=== PATIENT | female | born 1980 | race Caucasian/White ===

== ENCOUNTER 2018-07-29 18:48 | Emergency (ER) | payer SELFPAY ==
[~2018-07-29] VITALS: Ht 175.3 cm; Wt 52.2 kg
== END 2018-07-29 22:03 | disposition home or self-care (01) ==
LOC: ER 18:55
DX: M25.531 Pain in right wrist (principal); Y04.0XXA Assault by unarmed brawl or fight, initial encounter; Y93.89 Activity, other specified; Y92.89 Other specified places as the place of occurrence of the external cause; Y99.8 Other external cause status
CPT/HCPCS: 73110

== ENCOUNTER 2019-06-20 00:19 | Emergency (ER) | payer SELFPAY ==
[~2019-06-20] VITALS: Ht 175.3 cm; Wt 52.2 kg
[2019-06-20 00:48] VITALS: BP 118/18
== END 2019-06-20 01:22 | disposition home or self-care (01) ==
LOC: ER 00:26
DX: M25.531 Pain in right wrist (principal); F43.10 Post-traumatic stress disorder, unspecified; F41.9 Anxiety disorder, unspecified; F32.9 Major depressive disorder, single episode, unspecified; Z60.2 Problems related to living alone; Y08.89XA Assault by other specified means, initial encounter; Y93.89 Activity, other specified; Y92.89 Other specified places as the place of occurrence of the external cause; Y99.8 Other external cause status

== ENCOUNTER 2020-02-17 18:16 | Emergency (ER) | payer MEDICAID ==
[~2020-02-17] VITALS: Ht 175.3 cm; Wt 52.2 kg
--- NOTE | 2020-02-17 18:16 | NUR ---
PT BIB SELF C/O LEFT UE PAIN/BRUISE,S/P SLIP/FALL AT HOME,NO LOC. PT IS AAOX4, NOT IN RESPIRATORY DISTRESS, V/S STABLE, KEPT RESTED AND COMFORTABLE. WILL CONTINUE TO MONITOR.
--- NOTE | 2020-02-17 18:40 | NUR ---
SEEN AND EXAMINED BY MACIEL LO
[2020-02-17] MEDS ORDERED: HYDROCODONE/APAP 5/325MG TABLET ONE (18:45)
--- NOTE | 2020-02-17 18:48 | NUR ---
PT SIGNED WAIVER.
[2020-02-17] MEDS ORDERED: HYDROCODONE/APAP 5/325MG TABLET PO ONE (19:00)
[2020-02-17] MEDS ORDERED: IV NS 0.9% 500 ML BAG IV ONE (20:00)
[2020-02-17] MEDS ORDERED: PROPOFOL 200 MG/20 ML VIAL IV ONE (20:00)
[2020-02-17] MEDS ORDERED: KETAMINE HCL (500MG/10ML) 50 MG/ML VIAL IV ONE (20:00)
[2020-02-17] MEDS ORDERED: PROPOFOL 20 ML IV ONE (20:15)
[2020-02-17] MEDS ORDERED: KETAMINE HCL (500MG/10ML) 50 MG/ML VIAL ONE (20:15)
[2020-02-17] MEDS ORDERED: diphenhydrAMINE HCL 50 MG/ML VIAL ONE (20:40)
[2020-02-17] MEDS ORDERED: LORAZEPAM INJ 2 MG/ML VIAL ONE (20:44)
--- NOTE | 2020-02-17 20:45 | NUR ---
2019 lt wrist reduction with mod sedation done by dr. linda with tessie grant, consents signed in chart. see: intervention notes
--- NOTE | 2020-02-17 22:55 | NUR ---
Patient discharged to home in stable condition. Written and verbal after care instructions given. Patient verbalizes understanding of instruction.IV removed. Catheter intact and site benign. Pressure and 4x4 applied to site. No bleeding noted.
[2020-02-17 23:00] VITALS: BP 130/75
[2020-02-17] MEDS ORDERED: diphenhydrAMINE HCL 50 MG/ML VIAL IV ONE (23:30)
[2020-02-17] MEDS ORDERED: LORAZEPAM INJ 2 MG/ML VIAL IV ONE (23:30)
== END 2020-02-17 23:01 | disposition home or self-care (01) ==
LOC: ER 18:20
DX: S52.592A Other fractures of lower end of left radius, initial encounter for closed fracture (principal); S52.615A Nondisplaced fracture of left ulna styloid process, initial encounter for closed fracture; S40.012A Contusion of left shoulder, initial encounter; S09.8XXA Other specified injuries of head, initial encounter; F43.10 Post-traumatic stress disorder, unspecified; F41.9 Anxiety disorder, unspecified; F32.9 Major depressive disorder, single episode, unspecified; Z60.2 Problems related to living alone; W01.0XXA Fall on same level from slipping, tripping and stumbling without subsequent striking against object, initial encounter; Y93.89 Activity, other specified; Y92.098 Other place in other non-institutional residence as the place of occurrence of the external cause; Y99.8 Other external cause status
CPT/HCPCS: 25605; 70450; 73030; 73060; 73110 ×2; 96361; 96374; 96375; 99152; 99285; J1200; J2060; J2704; J3490; J7040; G0500